=== PATIENT | female | born 1960 | race Caucasian/White ===

== ENCOUNTER 2020-06-27 20:59 | Inpatient (IN) | payer OTHER ==
[2020-06-27] MEDS ORDERED: SODIUM CHLORIDE 1,000 ML IV ONE (21:20)
--- NOTE | 2020-06-27 21:25 | PDOC ---
History of Present Illness - General Chief Complaint: Rectal Bleed Stated Complaint: rectal bleed Time Seen by Provider: 06/27/20 21:07 History Source: Patient Exam Limitations: No Limitations - History of Present Illness Initial Comments: 06/27/20 21:22 This is a 60-year-old female with an autoimmune disorder on Plaquenil as well as some bipolar disease on lithium. Patient comes in complaining of bright red blood per rectum x4 days. Patient said that blood comes out every time she sits down on the toilet. Patient said she has hemorrhoids but this is painless. Patient said also over the last several hours she is felt short of breath but no chest pain or any other complaints. Patient denies any nausea vomiting or black tarry stools. Patient denies any recent NSAID use. Allergies: as per nursing notes Past Medical History: none Social history: Lives with family. No smoking. No alcohol. No illicit drugs. Surgical history: None General: No fevers or chills, no weakness, no weight loss HEENT: No change in vision. No sore throat,. No ear pain CardioVascular: no chest discomfort. No shortness of breath Respiratory:No cough, or wheezing. Gastrointestinal: no nausea, vomiting, diarrhea or constipation, No rectal bleeding Genitourinary: No dysuria, hematuria, or frequency Musculoskeletal: No joint or muscle pain or swelling Neurologic: No headache, vertigo, dizziness or loss of consciousness Psychiatric: nor depression Skin: No rashes or easy bruising Endocrine: no increased thirst or abnormal weight change Allergic: no skin or latex allergy All other systems reviewed and normal Exam: General: Well-nourished well-developed individual, no acute distress HEENT: Throat: Normal, tonsils normal, no erythema or exudate Neck: Supple, no meningeal signs, no lymphadenopathy Eyes::Pupils equal reactive and round, extraocular motion intact Chest: Nontender to palpation Cardiac: S1-S2 normal, regular rate and rhythm, no murmurs rubs or gallops Respiratory: Lungs clear to auscultation bilateral Abdomen: Soft, nondistended, normal bowel sounds, there is no tenderness on palpation diffusely Extremities: Warm, dry, no cyanosis, clubbing, or edema Skin: No rashes Neuro: Alert and oriented x3, CN II - XII intact, nonfocal exam with normal strength, normal sensation, normal reflexes, normal gait, Psych: Normal mood and affect Assessment and plan: This is a 60-year-old female who comes in with bright red blood per rectum. Patient did have approximately 20 cc bright red blood in the hat we put in the toilet bowl when she went to the bathroom. Patient had no stool or urine in the hat. Patient is also tachycardic at 130 but her blood pressure is okay. Patient given normal saline and type and screen was sent. Patient will need to be admitted 06/27/20 21:57 Past History - Medical History Allergies/Adverse Reactions: Allergies Allergy/AdvReac Type Severity Reaction Status Date / Time No Known Allergies Allergy Verified 06/27/20 21:01 Home Medications: Ambulatory Orders Hydroxychloroquine So4 [Plaquenil -] 200 mg PO BID tablet 09/01/15 Trazodone HCl 100 mg PO 2 TABS HS tablet 09/01/15 [place] Carbonate [Eskalith -] 200 mg PO BID 06/27/20 Methylphenidate HCl [Ritalin LA] 10 mg PO DAILY 06/27/20 COPD: No Hypercholesterolemia: Yes Other medical history: depression/auto immune - Psycho-Social/Smoking History Smoking History: Never smoked Have you smoked in the past 12 months: No Information on smoking cessation initiated: No - Substance Abuse Hx (Audit-C & DAST Scrn) How often the patient has a drink containing alcohol: 2-3 times / week Number of drinks the patient has on a typical day: 1 or 2 How often the patient has six or more drinks on one occasion: Never Score: In Men: 4 or > Positive; In Women: 3 or > Positive: 3 Screen Result (Pos requires Nsg. Audit-10AR): Positive In the last yr the pt used illegal drug/Rx for NonMed reason: No Score: Yes response is considered Positive: 0 Screen Result (Positive result requires Nsg. DAST-10): Negative *Physical Exam - Vital Signs Last Vital Signs Temp Pulse Resp BP Pulse Ox 97.9 F 130 H 20 159/84 100 06/27/20 21:11 06/27/20 21:11 06/27/20 21:11 06/27/20 21:11 06/27/20 21:11 ED Treatment Course - LABORATORY CBC & Chemistry Diagram: 06/27/20 21:25 06/27/20 21:25 Discharge - Discharge Information Problems reviewed: Yes Clinical Impression/Diagnosis: Bright red blood per rectum Condition: Stable - Admission Yes - Follow up/Referral Referrals: Chino Bynum MD [Primary Care Provider] - - Patient Discharge Instructions - Post Discharge Activity
[2020-06-27 21:49] LABS: BASO % 0.9 % (0-2.0); EOS % 1.3 % (0-4.5); HEMATOCRIT 42.1 % (32.4-45.2); LYMPH % 25.9 % (8-40); MCH 30.8 pg (25.7-33.7); MCHC 33.3 g/dl (32.0-36.0); MEAN CELL VOLUME 92.5 fl (80-96); MEAN PLT VOLUME 9.3 fl (7.5-11.1); MONO % 6.1 % (3.8-10.2); NEUT % 65.8 % (42.8-82.8); PLATELET COUNT 396 K/MM3 (134-434); RBC 4.55 M/mm3 (3.60-5.2); RDW 13.1 % (11.6-15.6); WHITE BLOOD COUNT 15.2 K/mm3 (4.0-10.8)
[2020-06-27 21:54] LABS: ALBUMIN 4.6 g/dl (3.4-5.0); BILIRUBIN,TOTAL 1.1 mg/dl (0.2-1); CALCIUM 9.7 mg/dl (8.5-10); POTASSIUM 3.6 mmol/L (3.5-5.1)
[2020-06-27 23:31] VITALS: BMI 23.3
--- NOTE | 2020-06-28 08:04 | HP ---
CHIEF COMPLAINT: "I am bleeding from my rectum" PCP: Dr. Bynum HISTORY OF PRESENT ILLNESS: This is a 60 y.o. female with a history of Bipolar on [place], autoimmune disorder on plaquenil, depression, and hemorrhoids who presented to the ED c/o BRBPR x4 days. Pt states she sat on the toilet and filled half a terry jar with bright red blood. Pt states she had some SOB, tremors, and weakness associated with the bleeding, but these have now resolved. Pt denies ever having a colonoscopy in the past or seeing a liquor stores and agencies supervisor. Pt reports last BM was 2 days ago, states she normally experiences some constipation. Pt denies family history of colon cancer and GI disorders. In the ED, pt bled while sitting on the toilet about 20mLs and this morning pt bled once again about 50mLs bright red blood with clots. Pt denies lightheadedness, dizziness, weakness, palpitations, abdominal pain, diarrhea, nausea, vomiting. ER course was notable for: (1) Normal Saline 1L Bolus (2) Type and Screen (3) Chest Xray - negative for acute pathology Recent Travel: Denies PAST MEDICAL HISTORY: Bipolar, Autoimmune Disorder, Hemorrhoids, Depression PAST SURGICAL HISTORY: Gynecological Laparoscopy/Laporotomy, Back Surgery 1999, Ovarian Removal 2014 Social History: Currently unemployed, lives at home with . Has three adopted children who don't live with her anymore. Smoking: Reports occasional marijuana smoking about every 2 months Alcohol: 1 bottle of wine occasionally on weekends Drugs: Denies Allergies No Known Allergies Allergy (Verified 06/27/20 21:01) HOME MEDICATIONS: Home Medications Medication Instructions Recorded Hydroxychloroquine So4 [Plaquenil 200 mg PO BID tablet 09/01/15 -] Trazodone HCl 100 mg PO 2 TABS HS tablet 09/01/15 [place] Carbonate [Eskalith -] 200 mg PO BID 06/27/20 Methylphenidate HCl [Ritalin LA] 10 mg PO DAILY 06/27/20 REVIEW OF SYSTEMS CONSTITUTIONAL: Absent: fever, chills, diaphoresis, generalized weakness, malaise, loss of appetite, weight change HEENT: Absent: rhinorrhea, nasal congestion, throat pain, throat swelling, difficulty swallowing, mouth swelling, ear pain, eye pain, visual changes CARDIOVASCULAR: Absent: chest pain, syncope, palpitations, irregular heart rate, lightheadedness, peripheral edema RESPIRATORY: Absent: cough, shortness of breath, dyspnea with exertion, orthopnea, wheezing, stridor, hemoptysis GASTROINTESTINAL: Present: hematochezia, hemorrhoids Absent: abdominal pain, abdominal distension, nausea, vomiting, diarrhea, constipation, melena GENITOURINARY: Absent: dysuria, frequency, urgency, hesitancy, hematuria, flank pain, genital pain MUSCULOSKELETAL: Absent: myalgia, arthralgia, joint swelling, back pain, neck pain SKIN: Absent: rash, itching, pallor HEMATOLOGIC/IMMUNOLOGIC: Absent: easy bleeding, easy bruising, lymphadenopathy, frequent infections ENDOCRINE:Absent: unexplained weight gain, unexplained weight loss, heat intolerance, cold intolerance NEUROLOGIC: Absent: headache, focal weakness or paresthesias, dizziness, unsteady gait, seizure, mental status changes, bladder or bowel incontinence PSYCHIATRIC: Present: Depression Absent: anxiety, suicidal or homicidal ideation, hallucinations. PHYSICAL EXAMINATION Vital Signs - 24 hr 06/27/20 06/27/20 06/27/20 21:11 22:22 23:00 Temperature 97.9 F 99.1 F Pulse Rate 130 H 94 H Pulse Rate [ 93 H Left] Respiratory 20 18 20 Rate Blood Pressure 159/84 138/78 Blood Pressure 130/100 [Left] O2 Sat by Pulse 100 100 98 Oximetry (%) 06/28/20 06/28/20 02:01 06:00 Temperature 98.5 F 98.4 F Pulse Rate 59 L 59 L Pulse Rate [ Left] Respiratory 20 18 Rate Blood Pressure 127/70 114/64 Blood Pressure [Left] O2 Sat by Pulse 100 100 Oximetry (%) GENERAL: Awake, alert, and fully oriented, in no acute distress. HEAD: Normal with no signs of trauma. EYES: Pupils equal, round and reactive to light, extraocular movements intact, sclera anicteric, conjunctiva clear. No lid lag. EARS, NOSE, THROAT: Ears normal, nares patent, oropharynx clear without exudates. Moist mucous membranes. NECK: Normal range of motion, supple without lymphadenopathy, JVD, or masses. LUNGS: Breath sounds equal, clear to auscultation bilaterally. No wheezes, and no crackles. No accessory muscle use. HEART: Regular rate and rhythm, normal S1 and S2 without murmur, rub or gallop. ABDOMEN: Soft, RLQ tenderness on deep palpation, not distended, normoactive bowel sounds, no guarding, no rebound, no masses. No hepatomegaly or splenomegaly. Last BM 06/25/2020. Rectal: External hemorrhoids present MUSCULOSKELETAL: Normal range of motion at all joints. No bony deformities or tenderness. No CVA tenderness. UPPER EXTREMITIES: 2+ pulses, warm, well-perfused. No cyanosis. No clubbing. No peripheral edema. LOWER EXTREMITIES: 2+ pulses, warm, well-perfused. No calf tenderness. No peripheral edema. NEUROLOGICAL: Cranial nerves II-XII intact. Normal speech. Normal gait. PSYCHIATRIC: Cooperative. Good eye contact. Appropriate mood and affect. SKIN: Warm, dry, normal turgor, no rashes or lesions noted, normal capillary refill. Laboratory Results - last 24 hr 06/27/20 06/27/20 06/27/20 21:25 21:25 21:25 WBC 15.2 H RBC 4.55 Hgb 14.0 Hct 42.1 MCV 92.5 MCH 30.8 MCHC 33.3 RDW 13.1 Plt Count 396 MPV 9.3 Absolute Neuts (auto) 10.1 Neutrophils % 65.8 Lymphocytes % 25.9 Monocytes % 6.1 Eosinophils % 1.3 Basophils % 0.9 Sodium 135 L Potassium 3.6 Chloride 102 Carbon Dioxide 18 L Anion Gap 15 BUN 17.0 Creatinine 1.0 Est GFR (CKD-EPI)AfAm 70.91 Est GFR (CKD-EPI)NonAf 61.19 Random Glucose 142 H Calcium 9.7 Total Bilirubin 1.1 H AST 25 ALT 16 Alkaline Phosphatase 74 Creatine Kinase 95 Troponin I < 0.03 Total Protein 7.0 Albumin 4.6 Blood Type Antibody Screen 06/27/20 06/27/20 21:25 21:45 WBC RBC Hgb Hct MCV MCH MCHC RDW Plt Count MPV Absolute Neuts (auto) Neutrophils % Lymphocytes % Monocytes % Eosinophils % Basophils % Sodium Potassium Chloride Carbon Dioxide Anion Gap BUN Creatinine Est GFR (CKD-EPI)AfAm Est GFR (CKD-EPI)NonAf Random Glucose Calcium Total Bilirubin AST ALT Alkaline Phosphatase Creatine Kinase Troponin I Total Protein Albumin Blood Type O POSITIVE O POSITIVE Antibody Screen Negative ASSESSMENT/PLAN: This is a 59 y.o. female with a history of Bipolar, autoimmune disorder, hemorrhoids, and depression who came in to the ED for BRBPR x4 days not associated with bowel movements. Pt has active lower GI bleed with right lower quadrant tenderness and leukocytosis. VTE Prophylaxis: No AC as pt is actively bleeding Spoke with patient's at length who is an Rope Tow Operator (Otoniel). He was updated on patient's status and the plan. Pt's states he wants patient to be transferred to a bigger facility, states he has connection with doctors at [facility] and has an appointment set up for patient with a colorectal doctor tomorrow. Discussed with that patient is actively bleeding and work up is still in progress, therefore if patient wants to leave and go to another facility, she would have to sign out AMA. Pt's agreed to have patient transferred to [facility] for closer monitoring. Otoniel () - [phone] Family Medical History Family History: Unremarkable Problem List - Problem (1) Bright red blood per rectum Assessment/Plan: Pt had 2 episodes bright red blood per rectum with clots since admission Hgb stable, repeat hgb dropped by 2gm/dL but still WNL Repeat CBC at 2pm today and then q 6 CT Abdomen/Pelvis showed diverticula in the left colon without diverticulitis. otherwise, no other acute pathology. start on Protonix Drip 2 units PRBCs on hold with blood bank LR @ 100mL/hr Keep NPO for now, can have PO meds Continous Cardiac Monitoring Spoke with Dr. Astudillo - agrees with plan and possible colonoscopy in the morning pending CT scan results Code(s): K62.5 - HEMORRHAGE OF ANUS AND RECTUM (2) Leukocytosis Assessment/Plan: Pt afebrile Collect UA and Urine culture Check blood cultures and stool cultures Code(s): D72.829 - ELEVATED WHITE BLOOD CELL COUNT, UNSPECIFIED (3) Bipolar disorder Assessment/Plan: Check lithium levels Restart home dose lithium Code(s): F31.9 - BIPOLAR DISORDER, UNSPECIFIED (4) Depression Assessment/Plan: Continue trazadone Code(s): F32.9 - MAJOR DEPRESSIVE DISORDER, SINGLE EPISODE, UNSPECIFIED (5) Autoimmune disorder Assessment/Plan: Continue plaquenil Code(s): D89.89 - OTH DISRD INVOLVING THE IMMUNE MECHANISM, NEC (6) Prophylactic measure Assessment/Plan: FEN LR @ 100 monitor electrolytes, cmp along with cbc q 4 NPO except for limited PO meds code status: full code covid status: pending Code(s): Z29.9 - ENCOUNTER FOR PROPHYLACTIC MEASURES, UNSPECIFIED Visit type - Emergency Visit Emergency Visit: Yes ED Registration Date: 06/27/20 Care time: The patient presented to the Emergency Department on the above date and was hospitalized for further evaluation of their emergent condition. - New Patient This patient is new to me today: Yes Date on this admission: 06/28/20 - Critical Care Critical Care patient: No
[2020-06-28] MEDS ORDERED: traZODone HCL 150 MG TABLET PO SCH (08:45)
[2020-06-28] MEDS ORDERED: SODIUM CHLORIDE 1,000 ML IV SCH (08:45)
[2020-06-28 09:11] LABS: INR 1.1 (0.82-1.09); PROTHROMBIN TIME (PATIENT) 12.3 SEC (10.2-13.0)
[2020-06-28 09:18] LABS: CALCIUM 9.3 mg/dl (8.5-10); CREATININE 0.9 mg/dl (0.55-1.3); POTASSIUM 4.2 mmol/L (3.5-5.1)
[2020-06-28] MEDS ORDERED: LACTATED RINGERS SOLUTION 1,000 ML/1,000 ML INFUS.BAG IV SCH (09:30)
[2020-06-28 09:41] LABS: HEMATOCRIT 37.7 % (32.4-45.2); HEMOGLOBIN 12.7 GM/dl (10.7-15.3); MCH 31.3 pg (25.7-33.7); MCHC 33.7 g/dl (32.0-36.0); MEAN CELL VOLUME 92.7 fl (80-96); MEAN PLT VOLUME 9.3 fl (7.5-11.1); PLATELET COUNT 355 K/MM3 (134-434); RBC 4.07 M/mm3 (3.60-5.2); RDW 12.4 % (11.6-15.6); WHITE BLOOD COUNT 14.2 K/mm3 (4.0-10.8)
[2020-06-28] MEDS ORDERED: PANTOPRAZOLE 40 MG TABLET PO SCH (10:00)
[2020-06-28] MEDS ORDERED: METHYLPHENIDATE HCL 10 MG PO SCH (10:00)
[2020-06-28] MEDS: PANTOPRAZOLE SODIUM 80 MG in SODIUM CHLORIDE 100 ML IVPB SCH ×2 (10:07→22:49)
[2020-06-28] MEDS: HYDROXYCHLOROQUINE SO4 200 MG TABLET (FP) PO SCH ×2 (10:50→22:49)
[2020-06-28] MEDS ORDERED: LITHIUM CARBONATE 300 MG CAPSULE (FP) PO SCH ×2 (11:00→22:00)
[2020-06-28] MEDS ORDERED: METHYLPHENIDATE HCL 5 MG TABLET PO SCH (12:00)
--- NOTE | 2020-06-28 12:45 | EKG ---
Test Reason : Blood Pressure : / mmHG Vent. Rate : 121 BPM Atrial Rate : 121 BPM P-R Int : 168 ms QRS Dur : 088 ms QT Int : 316 ms P-R-T Axes : 072 -62 073 degrees QTc Int : 448 ms SINUS TACHYCARDIA LEFT ANTERIOR FASCICULAR BLOCK INFERIOR INFARCT , AGE UNDETERMINED ABNORMAL ECG NO PREVIOUS ECGS AVAILABLE Confirmed by Chacorta Cano ([id number]) on 06/28/2020 12:45:21 PM Referred By: Confirmed By:Chacorta Cano
[2020-06-28 14:15] LABS: HEMATOCRIT 32.9 % (32.4-45.2); HEMOGLOBIN 11.2 GM/dl (10.7-15.3); MCH 31.3 pg (25.7-33.7); MCHC 33.9 g/dl (32.0-36.0); MEAN CELL VOLUME 92.2 fl (80-96); MEAN PLT VOLUME 8.6 fl (7.5-11.1); PLATELET COUNT 281 K/MM3 (134-434); RBC 3.57 M/mm3 (3.60-5.2); RDW 12.6 % (11.6-15.6); WHITE BLOOD COUNT 10.7 K/mm3 (4.0-10.8)
[2020-06-28 14:42] LABS: BASO % 0.9 % (0-2.0); EOS % 1.5 % (0-4.5); HEMATOCRIT 32.7 % (32.4-45.2); HEMOGLOBIN 11.2 GM/dl (10.7-15.3); LYMPH % 26.8 % (8-40); MCH 31.4 pg (25.7-33.7); MCHC 34.1 g/dl (32.0-36.0); MEAN CELL VOLUME 92.1 fl (80-96); MONO % 5.7 % (3.8-10.2); NEUT % 65.1 % (42.8-82.8); PLATELET COUNT 288 K/MM3 (134-434); RBC 3.55 M/mm3 (3.60-5.2); RDW 12.9 % (11.6-15.6); WHITE BLOOD COUNT 10.4 K/mm3 (4.0-10.8)
[2020-06-28] MEDS ORDERED: ACETAMINOPHEN 325 MG TABLET (FP) PO PRN (16:38)
[2020-06-28 18:05] LABS: BASO % 0.8 % (0-2.0); EOS % 1.7 % (0-4.5); HEMATOCRIT 31.8 % (32.4-45.2); HEMOGLOBIN 10.8 GM/dl (10.7-15.3); LYMPH % 26.9 % (8-40); MCH 31.4 pg (25.7-33.7); MCHC 34.1 g/dl (32.0-36.0); MEAN PLT VOLUME 8.6 fl (7.5-11.1); MONO % 6.2 % (3.8-10.2); NEUT % 64.4 % (42.8-82.8); PLATELET COUNT 287 K/MM3 (134-434); RBC 3.45 M/mm3 (3.60-5.2); RDW 12.7 % (11.6-15.6); WHITE BLOOD COUNT 9.9 K/mm3 (4.0-10.8)
[2020-06-28] MEDS ORDERED: REFRIGERATED ANITBIOTICS ONE ×2 (18:07→19:27)
[2020-06-28 18:14] LABS: ALBUMIN 3.6 g/dl (3.4-5.0); BILIRUBIN,TOTAL 1.1 mg/dl (0.2-1); CALCIUM 8.7 mg/dl (8.5-10); CREATININE 0.7 mg/dl (0.55-1.3); POTASSIUM 3.7 mmol/L (3.5-5.1); TOT PROT 5.3 g/dl (6.4-8.2)
[2020-06-28] MEDS ORDERED: traZODone HCL 50 MG TABLET (FP) ONE (20:58)
[2020-06-28] MEDS ORDERED: traZODone HCL 100 MG TABLET (FP) PO SCH (22:00)
[2020-06-28] MEDS ORDERED: ATORVASTATIN CA 10 MG TABLET (FP) PO SCH (22:00)
[2020-06-28] MEDS: LACTATED RINGERS SOLUTION 1,000 ML/1,000 ML INFUS.BAG IV SCH (23:50)
--- NOTE | 2020-06-29 00:55 | PN ---
Progress Note (short form) - Note Progress Note: Patient seen and examined at bedside. Patient was brought in by ambulance from [facility]. Patient reports that she still has bright red blood per rectum bleeding, but that it is improved. She reports having in the past hemorrhoidal bleeding, but that this is much more different. She states that if she sits down, even to urinate, bright red blood can come out of her rectum. She denies fever/chills, heart palpitations, chest pain, abdominal pain, and shortness of breath. Physical Exam: Heart: RRR with no murmurs Pulm: CTA b/l Abdomen: Soft, non-tender, non-distended, normoactive. Patient is NPO for colonoscopy.
--- NOTE | 2020-06-29 00:57 | PN ---
Teaching Attending Note Name of Resident: Dom Youssef ATTENDING PHYSICIAN STATEMENT I saw and evaluated the patient. I reviewed the resident's note and discussed the case with the resident. I agree with the resident's findings and plan as documented. SUBJECTIVE: 60yoF presenting as transfer from [facility] for evaluation of hematochezia. Notes bl eeding has improved since presenting to [facility], previously had bleeding per rectum any time she went to the bathroom but this evening there has been no blood the past two times. Has not required blood transfusion. Last BM yesterday morning. No nausea, vomiting, lightheadedness, chest pain, abdominal pain. CT abd/pelvis showed scattered diverticula left colon without diverticulitis. OBJECTIVE: Vital Signs - 24 hr 06/28/20 06/28/20 21:00 22:00 Temperature 98.2 F Pulse Rate 77 Respiratory 18 18 Rate Blood Pressure 143/68 O2 Sat by Pulse 98 98 Oximetry (%) EXAM Gen: awake, alert, NAD CV: RRR, no MRG Resp: CTAB, unlabored Abd: Soft, NT, ND. +BS throughout Ext: no edema ASSESSMENT AND PLAN: 60yoF presenting as transfer from [facility] for evaluation of hematochezia. Hematochezia; acute blood loss anemia No active bleeding currently. VSS and asymptomatic Hgb 14.0 -> 10.8 most recently; suspect some dilutional effect as all cell lines decreased - NPO - continue IVF - GI evaluation pending - rpt CBC in AM Bipolar disorder, autoimmune disorder: continue home meds DVT ppx: SCD
[2020-06-29] MEDS: PANTOPRAZOLE SODIUM 80 MG in SODIUM CHLORIDE 100 ML IVPB SCH ×2 (06:00→18:14)
[2020-06-29 08:48] LABS: CHOLESTEROL 131 mg/dL (50-200); LDL CHOLESTEROL (ONLY SJRH) 62 mg/dL (5-100); TRIGLYCERIDES 99 mg/dL (0-150)
[2020-06-29 08:50] LABS: HDL CHOLESTEROL 59 mg/dL (40-60)
[2020-06-29 08:51] LABS: BILIRUBIN,TOTAL 0.8 mg/dL (0.2-1); BLOOD UREA NITROGEN 6.7 mg/dL (7-18); CALCIUM 8.4 mg/dL (8.5-10.1); CREATININE 0.7 mg/dL (0.55-1.3); POTASSIUM 3.7 mmol/L (3.5-5.1)
[2020-06-29 09:43] LABS: BASO % 0.9 % (0-2.0); EOS % 3.5 % (0-4.5); HEMATOCRIT 29.1 % (32.4-45.2); HEMOGLOBIN 9.6 GM/dL (10.7-15.3); LYMPH % 37.8 % (8-40); MCH 30.2 pg (25.7-33.7); MCHC 33.1 g/dl (32.0-36.0); MEAN CELL VOLUME 91.3 fl (80-96); MEAN PLT VOLUME 9.3 fl (7.5-11.1); MONO % 7.8 % (3.8-10.2); PLATELET COUNT 210 K/MM3 (134-434); RBC 3.18 M/mm3 (3.60-5.2); RDW 13.7 % (11.6-15.6); WHITE BLOOD COUNT 7.4 K/mm3 (4.0-10.0)
[2020-06-29] MEDS: HYDROXYCHLOROQUINE SO4 200 MG TABLET (FP) PO SCH ×2 (10:25→22:22)
--- NOTE | 2020-06-29 13:20 | PN ---
Physical Exam: SUBJECTIVE: Patient seen and examined today with at bedside, situation explained. Ptn denies any more bloody bowel movements. Denies any CP, SoB, Blurry vision or syncopal episodes. Endorses mild dizziness. OBJECTIVE: Vital Signs Period Temp Pulse Resp BP Sys/Hernandez Pulse Ox Last 24 Hr 98.1 F-98.9 F 71-89 16-20 97-143/42-73 98-100 GENERAL: The patient is awake, alert, and fully oriented, in no acute distress. HEAD: Normal with no signs of trauma. EYES: PERRL, extraocular movements intact, sclera anicteric, conjunctiva clear. No ptosis. ENT: Ears normal, nares patent, oropharynx clear without exudates, moist mucous membranes. NECK: Trachea midline, full range of motion, supple. LUNGS: Breath sounds equal, clear to auscultation bilaterally, no wheezes, no crackles, no accessory muscle use. HEART: Regular rate and rhythm, S1, S2 without murmur, rub or gallop. ABDOMEN: Soft, nontender, nondistended, normoactive bowel sounds EXTREMITIES: 2+ pulses, warm, well-perfused, no edema. NEUROLOGICAL: Normal speech, gait not observed. PSYCH: Normal mood, normal affect. SKIN: Warm, dry, normal turgor, no rashes or lesions noted Laboratory Results - last 24 hr CBC, BMP 06/29/20 13:37 06/29/20 13:37 Active Medications Generic Name Dose Route Start Last Admin Trade Name Freq PRN Reason Stop Dose Admin Acetaminophen 650 mg 06/28/20 16:38 Tylenol - PO Q6H PRN PAIN LEVEL 7 - 10 Atorvastatin Calcium 10 mg 06/29/20 22:00 Lipitor - PO HS MEAGHAN Hydroxychloroquine Sulfate 200 mg 06/29/20 10:00 06/29/20 10:25 Plaquenil - PO 200 mg BID MEAGHAN Administration Lactated Ringer's 1,000 ml in 1,000 mls @ 100 mls/hr 06/28/20 23:23 06/28/20 23:50 Lactated Ringers Solution IV 100 mls/hr ASDIR MEAGHAN Administration Pantoprazole Sodium 80 mg/ 100 mls @ 10 mls/hr 06/29/20 06:00 06/29/20 06:00 Sodium Chloride IVPB 07/01/20 09:59 10 mls/hr Q10H MEAGHAN Administration 8 MG/HR [place] Carbonate 300 mg 06/29/20 22:00 Eskalith - PO HS MEAGHAN Trazodone HCl 100 mg 06/29/20 22:00 Desyrel - PO HS MEAGHAN ASSESSMENT/PLAN: This is a 59 y.o. female with a history of Bipolar, autoimmune disorder, he morrhoids, and depression who came in to the ED for BRBPR x4 days not associated with bowel movements. Pt has active lower GI bleed with right lower quadrant tenderness and leukocytosis. GI Bleeding likely 2/2 Diverticulosis -Active GI Bleeding, now resolved -Anemia -FU Afternoon CBC -CT Abdomen/Pelvis: Diverticula in the left colon without diverticulitis -Protonix 80mg IV -LR @ 100mL/hr -Per GI: Ptn agreed to Colonoscopy --> NPO after midnight Anemia -Per GI: Transfuse above 7.0 -If profuse bleeding, transfer to ICU Leukocytosis -VSS, no fever -UA Negative -FU UCx -FU Blood Cx Hypoglycemia: -Currently CLD -Monitor Blood Glucose Bipolar Disorder -Continue Home [place] -Monitor [place] Levels in 3 days MDD -Continue Trazadone Lichen Planus Follicularis -Hair Loss -Continue Plaquenil FEN LR @ 100 Monitory Lytes CLD per GI, NPO after midnight Dispo: Continue management on med floors Visit type - Emergency Visit Emergency Visit: No - New Patient This patient is new to me today: Yes Date on this admission: 06/29/20 - Critical Care Critical Care patient: No - Discharge Referral Referred to [facility] Med P.C.: No ATTENDING PHYSICIAN STATEMENT I saw and evaluated the patient. I reviewed the resident's note and discussed the case with the resident. I agree with the resident's findings and plan as documented. SUBJECTIVE: OBJECTIVE: ASSESSMENT AND PLAN:
--- NOTE | 2020-06-29 14:01 | CON.GI ---
Consult Consult Specialty:: GI Referred by:: Hospitalist Service Reason for Consultation:: Rectal Bleeding - History of Present Illness Chief Complaint: Rectal bleeding History of Present Illness: 60F admitted for evaluation of rectal bleeding. Bleeding started last . Multiple episodes throughout the days. Waited until Sunday to seek evaluation. At that time was lightheaded and dizzy. Was seen at [facility] but transferred to [facility]. Initial Hgb was 14. Currently 9.6. A contrast CT scan performed in the ER (Unclear why) revealed left sided diverticulosis and a fat containing right inguinal hernia. No h/o anemia. Has small blood tinged BM today. Has never had colonoscopy. Alludes to having had negative stool cologuard testing performed 3-4 months ago. No associated abdominal pain. No family history of colon cancer. - History Source History Provided By: Patient - Past Medical History Psych: Yes: Depression - Past Surgical History Additional Surgical History: Laparoscopy - Alcohol/Substance Use Hx Alcohol Use: No - Smoking History Smoking history: Never smoked Have you smoked in the past 12 months: No - Social History Usual Living Arrangement: Assisted Living History of Recent Travel: No Home Medications - Allergies Allergies/Adverse Reactions: Allergies Allergy/AdvReac Type Severity Reaction Status Date / Time No Known Allergies Allergy Verified 06/27/20 21:01 - Home Medications Home Medications: Ambulatory Orders Hydroxychloroquine So4 [Plaquenil -] 200 mg PO BID tablet 09/01/15 Trazodone HCl 100 mg PO 2 TABS HS tablet 09/01/15 [place] Carbonate [Eskalith -] 600 mg PO HS 06/27/20 Methylphenidate HCl [Ritalin LA] 20 mg PO TID 06/27/20 Family Medical History Other Family History: Mother: Alive: healthy. Father: : Atypical lung infection. 1 brother, 1 sister. No biological children Review of Systems - Review of Systems Constitutional: reports: Weakness. denies: Chills Cardiovascular: denies: Chest Pain Respiratory: denies: Cough Gastrointestinal: reports: Rectal Bleeding. denies: Abdominal Pain, Nausea, Vomiting Physical Exam-GI Vital Signs: Vital Signs Temperature 98.1 F 06/29/20 09:19 Pulse Rate 72 06/29/20 09:24 Respiratory Rate 20 06/29/20 09:19 Blood Pressure 98/47 L 06/29/20 09:24 O2 Sat by Pulse Oximetry (%) 100 06/29/20 09:19 Constitutional: Yes: Calm Eyes: No: Sclera Icterus Cardiovascular: Yes: Regular Rate and Rhythm. No: Murmur Respiratory: Yes: CTA Bilaterally Gastrointestinal Inspection: No: Distention ...Auscultate: Yes: Normoactive Bowel Sounds ...Palpate: Yes: Soft. No: Hepatomegaly, Splenomegaly, Tenderness ...Percussion: No: Tympanitic ...Rectal Exam: Yes: Other (Screener And Blender Operator present: No external lesions, no masses, scant liquid brown stool in rectal vault) Edema: No Neurological: Yes: Alert Labs: CBC, BMP 06/29/20 05:35 06/29/20 05:35 INR, PTT INR 1.10 (0.82-1.09) 06/28/20 06:00 Problem List - Problems (1) Bright red blood per rectum Assessment/Plan: Suspect diverticular bleed Discussed colonoscopy with patient for further evaluation. DIscussed potential risks of the procedure like but not limited to blleeding, perforation requiring surgery to repair, infection, sedation medication effects all of which could be potentially life threatening. She has agreed to the procedure. For now: Clear liquids Continued monitor setting Ordered repeat CBC for this afternoon. Monitor H/H. Keep Hgb >7 If continued profuse rectal bleeding, transfer to ICU, obtain CTA of abdomen and pelvis to help localize bleeding sourcew and obtain surgical evaluation. Code(s): K62.5 - HEMORRHAGE OF ANUS AND RECTUM
[2020-06-29 14:15] LABS: HEMATOCRIT 30.5 % (32.4-45.2); HEMOGLOBIN 9.9 GM/dL (10.7-15.3); MCHC 32.4 g/dl (32.0-36.0); MEAN CELL VOLUME 92.5 fl (80-96); MEAN PLT VOLUME 9.1 fl (7.5-11.1); PLATELET COUNT 211 K/MM3 (134-434); WHITE BLOOD COUNT 11.8 K/mm3 (4.0-10.0)
[2020-06-29 14:45] LABS: ALBUMIN 3.2 g/dl (3.4-5.0); BILIRUBIN,TOTAL 0.7 mg/dL (0.2-1); BLOOD UREA NITROGEN 9.1 mg/dL (7-18); CALCIUM 8.7 mg/dL (8.5-10.1); CREATININE 0.8 mg/dL (0.55-1.3); POTASSIUM 4.2 mmol/L (3.5-5.1); TOT PROT 5.2 g/dl (6.4-8.2)
[2020-06-29] MEDS ORDERED: BISACODYL 5 MG TABLET.DR (FP) PO ONE (16:00)
[2020-06-29] MEDS ORDERED: PEG 3350/NA SULF BICARB CL/KCL 4000 ML SOLN.RECON PO ONE (17:00)
--- NOTE | 2020-06-29 18:36 | PN ---
Teaching Attending Note Name of Resident: Ronn Leblanc ATTENDING PHYSICIAN STATEMENT I saw and evaluated the patient. I reviewed the resident's note and discussed the case with the resident. I agree with the resident's findings and plan as documented. SUBJECTIVE: Patient looks comfortable with NAD OBJECTIVE: Vital Signs Temperature 98.2 F 06/29/20 14:05 Pulse Rate 72 06/29/20 14:05 Respiratory Rate 20 06/29/20 14:05 Blood Pressure 105/59 L 06/29/20 14:05 O2 Sat by Pulse Oximetry (%) 100 06/29/20 09:19 PE; per resident's note CBCD WBC 11.8 K/mm3 (4.0-10.0) H 06/29/20 13:37 RBC 3.30 M/mm3 (3.60-5.2) L 06/29/20 13:37 Hgb 9.9 GM/dL (10.7-15.3) L 06/29/20 13:37 Hct 30.5 % (32.4-45.2) L 06/29/20 13:37 MCV 92.5 fl (80-96) 06/29/20 13:37 MCHC 32.4 g/dl (32.0-36.0) 06/29/20 13:37 RDW 14.0 % (11.6-15.6) 06/29/20 13:37 Plt Count 211 K/MM3 (134-434) 06/29/20 13:37 MPV 9.1 fl (7.5-11.1) 06/29/20 13:37 CMP Sodium 142 mmol/L (136-145) 06/29/20 13:37 Potassium 4.2 mmol/L (3.5-5.1) 06/29/20 13:37 Chloride 111 mmol/L (98-107) H 06/29/20 13:37 Carbon Dioxide 24 mmol/L (21-32) 06/29/20 13:37 Anion Gap 8 MMOL/L (8-16) 06/29/20 13:37 BUN 9.1 mg/dL (7-18) 06/29/20 13:37 Creatinine 0.8 mg/dL (0.55-1.3) 06/29/20 13:37 Random Glucose 56 mg/dL (74-106) L 06/29/20 13:37 Calcium 8.7 mg/dL (8.5-10.1) 06/29/20 13:37 Total Bilirubin 0.7 mg/dL (0.2-1) 06/29/20 13:37 AST 16 U/L (15-37) 06/29/20 13:37 ALT 14 U/L (13-61) 06/29/20 13:37 Alkaline Phosphatase 58 U/L (45-117) 06/29/20 13:37 Total Protein 5.2 g/dl (6.4-8.2) L 06/29/20 13:37 Albumin 3.2 g/dl (3.4-5.0) L 06/29/20 13:37 CARDIAC ENZYMES Creatine Kinase 95 U/L (26-192) 06/27/20 21:25 Troponin I < 0.03 ng/ml (0.00-0.05) 06/27/20 21:25 Current Medications Generic Name Dose Route Start Last Admin Trade Name Freq PRN Reason Stop Dose Admin Acetaminophen 650 mg 06/28/20 16:38 Tylenol - PO Q6H PRN PAIN LEVEL 7 - 10 Atorvastatin Calcium 10 mg 06/29/20 22:00 Lipitor - PO HS MEAGHAN Hydroxychloroquine Sulfate 200 mg 06/29/20 10:00 06/29/20 10:25 Plaquenil - PO 200 mg BID MEAGHAN Administration Lactated Ringer's 1,000 ml in 1,000 mls @ 100 mls/hr 06/28/20 23:23 06/28/20 23:50 Lactated Ringers Solution IV 100 mls/hr ASDIR MEAGHAN Administration Pantoprazole Sodium 80 mg/ 100 mls @ 10 mls/hr 06/29/20 06:00 06/29/20 18:14 Sodium Chloride IVPB 07/01/20 09:59 10 mls/hr Q10H MEAGHAN Administration 8 MG/HR [place] Carbonate 600 mg 06/29/20 22:00 Eskalith - PO HS MEAGHAN Methylphenidate HCl 20 mg 06/29/20 22:00 Ritalin - PO TID MEAGHAN Trazodone HCl 200 mg 06/29/20 22:00 Desyrel - PO HS MEAGHAN Home Medications Medication Instructions Recorded Hydroxychloroquine So4 [Plaquenil 200 mg PO BID tablet 11/11/15 -] Trazodone HCl 100 mg PO 2 TABS HS tablet 09/01/15 [place] Carbonate [Eskalith -] 600 mg PO HS 06/27/20 Methylphenidate HCl [Ritalin LA] 20 mg PO TID 06/27/20 Microbiology 06/28/20 09:49 Blood - Peripheral Venous Blood Culture - Preliminary NO GROWTH OBTAINED AFTER 24 HOURS, INCUBATION TO CONTINUE FOR 4 DAYS. 06/28/20 09:49 Blood - Peripheral Venous Blood Culture - Preliminary NO GROWTH OBTAINED AFTER 24 HOURS, INCUBATION TO CONTINUE FOR 4 DAYS. 06/28/20 10:30 Urine - Urine Clean Catch Urine Culture - Preliminary ASSESSMENT AND PLAN: This patient is a 59yof with PMhx of Bipolar, autoimmune disorder, hemorrhoids, and depression who came in to the ED for having bright red blood x 4 days with bowel movements painless. # Acute GIB due to Diverticulosis most likely , Colonoscopy in am , GI consulted and appreciated # Anemia: H/H monitor #Acute Leukocytosis monitor , no source of infection, follow cx #Bipolar Disorder continue Home [place] , f/u the level #MDD continue Trazadone will lower the dose since can prolong Qtc # Lichen Planus Follicularis: Hair Loss, continue Plaquenil, will check QTc prior to giving the patient the medication DVT px: SCds, npo after midnight for colonoscopy
[2020-06-29] MEDS ORDERED: PT OWN MED DRAWER 7, Y5N ONE ×2 (21:25→22:24)
[2020-06-29] MEDS ORDERED: traZODone HCL 100 MG TABLET (FP) PO SCH ×2 (22:00)
[2020-06-29] MEDS ORDERED: LITHIUM CARBONATE 300 MG CAPSULE (FP) PO SCH ×2 (22:00)
[2020-06-29] MEDS ORDERED: ATORVASTATIN CA 10 MG TABLET (FP) PO SCH (22:00)
[2020-06-29] MEDS: METHYLPHENIDATE HCL 5 MG TABLET PO SCH (23:45)
[2020-06-29] MEDS: LACTATED RINGERS SOLUTION 1,000 ML/1,000 ML INFUS.BAG IV SCH (23:45)
[2020-06-30] MEDS: PANTOPRAZOLE SODIUM 80 MG in SODIUM CHLORIDE 100 ML IVPB SCH ×3 (04:30→15:25)
[2020-06-30] MEDS: LACTATED RINGERS SOLUTION 1,000 ML/1,000 ML INFUS.BAG IV SCH (05:23)
[2020-06-30] MEDS: METHYLPHENIDATE HCL 5 MG TABLET PO SCH ×2 (05:23→15:24)
[2020-06-30 07:23] LABS: BASO % 0.7 % (0-2.0); EOS % 4.2 % (0-4.5); HEMATOCRIT 24.4 % (32.4-45.2); HEMOGLOBIN 8.2 GM/dL (10.7-15.3); LYMPH % 43.2 % (8-40); MCH 30.4 pg (25.7-33.7); MCHC 33.6 g/dl (32.0-36.0); MEAN CELL VOLUME 90.5 fl (80-96); MEAN PLT VOLUME 9.3 fl (7.5-11.1); MONO % 8.3 % (3.8-10.2); NEUT % 43.6 % (42.8-82.8); PLATELET COUNT 190 K/MM3 (134-434); RBC 2.69 M/mm3 (3.60-5.2); RDW 13.5 % (11.6-15.6); WHITE BLOOD COUNT 5.9 K/mm3 (4.0-10.0)
[2020-06-30 07:41] LABS: ALBUMIN 2.5 g/dl (3.4-5.0); BILIRUBIN,TOTAL 0.5 mg/dL (0.2-1); BLOOD UREA NITROGEN 6.6 mg/dL (7-18); CALCIUM 7.7 mg/dL (8.5-10.1); CREATININE 0.8 mg/dL (0.55-1.3); POTASSIUM 3.6 mmol/L (3.5-5.1); TOT PROT 4.2 g/dl (6.4-8.2)
--- NOTE | 2020-06-30 09:50 | PN ---
Teaching Attending Note Name of Resident: Ronn Leblanc ATTENDING PHYSICIAN STATEMENT I saw and evaluated the patient. I reviewed the resident's note and discussed the case with the resident. I agree with the resident's findings and plan as documented. SUBJECTIVE: Patient is feeling better , going for colonoscopy today OBJECTIVE: Vital Signs Temperature 97.8 F 06/30/20 09:03 Pulse Rate 60 06/30/20 09:03 Respiratory Rate 18 06/30/20 09:03 Blood Pressure 100/50 L 06/30/20 09:03 O2 Sat by Pulse Oximetry (%) 0 L 06/30/20 09:03 PE: per resident's note CBCD WBC 5.9 K/mm3 (4.0-10.0) 06/30/20 05:32 RBC 2.69 M/mm3 (3.60-5.2) L 06/30/20 05:32 Hgb 8.2 GM/dL (10.7-15.3) L 06/30/20 05:32 Hct 24.4 % (32.4-45.2) L D 06/30/20 05:32 MCV 90.5 fl (80-96) 06/30/20 05:32 MCHC 33.6 g/dl (32.0-36.0) 06/30/20 05:32 RDW 13.5 % (11.6-15.6) 06/30/20 05:32 Plt Count 190 K/MM3 (134-434) 06/30/20 05:32 MPV 9.3 fl (7.5-11.1) 06/30/20 05:32 CMP Sodium 143 mmol/L (136-145) 06/30/20 05:32 Potassium 3.6 mmol/L (3.5-5.1) 06/30/20 05:32 Chloride 112 mmol/L (98-107) H 06/30/20 05:32 Carbon Dioxide 28 mmol/L (21-32) 06/30/20 05:32 Anion Gap 4 MMOL/L (8-16) L 06/30/20 05:32 BUN 6.6 mg/dL (7-18) L 06/30/20 05:32 Creatinine 0.8 mg/dL (0.55-1.3) 06/30/20 05:32 Random Glucose 83 mg/dL (74-106) 06/30/20 05:32 Calcium 7.7 mg/dL (8.5-10.1) L 06/30/20 05:32 Total Bilirubin 0.5 mg/dL (0.2-1) 06/30/20 05:32 AST 13 U/L (15-37) L 06/30/20 05:32 ALT 13 U/L (13-61) 06/30/20 05:32 Alkaline Phosphatase 40 U/L (45-117) L 06/30/20 05:32 Total Protein 4.2 g/dl (6.4-8.2) L 06/30/20 05:32 Albumin 2.5 g/dl (3.4-5.0) L 06/30/20 05:32 CARDIAC ENZYMES Creatine Kinase 95 U/L (26-192) 06/27/20 21:25 Troponin I < 0.03 ng/ml (0.00-0.05) 06/27/20 21:25 Current Medications Generic Name Dose Route Start Last Admin Trade Name Joel PRN Reason Stop Dose Admin Acetaminophen 650 mg 06/28/20 16:38 Tylenol - PO Q6H PRN PAIN LEVEL 7 - 10 Atorvastatin Calcium 10 mg 06/29/20 22:00 06/29/20 22:21 Lipitor - PO 10 mg HS MEAGHAN Administration Hydroxychloroquine Sulfate 200 mg 06/29/20 10:00 06/29/20 22:22 Plaquenil - PO 200 mg BID MEAGHAN Administration Lactated Ringer's 1,000 ml in 1,000 mls @ 100 mls/hr 06/28/20 23:23 06/30/20 05:23 Lactated Ringers Solution IV 100 mls/hr ASDIR MEAGHAN Administration Pantoprazole Sodium 80 mg/ 100 mls @ 10 mls/hr 06/29/20 06:00 06/30/20 04:30 Sodium Chloride IVPB 07/01/20 09:59 10 mls/hr Q10H MEAGHAN Administration 8 MG/HR [place] Carbonate 600 mg 06/29/20 22:00 06/29/20 22:21 Eskalith - PO 600 mg HS MEAGHAN Administration Methylphenidate HCl 20 mg 06/29/20 22:00 06/30/20 05:23 Ritalin - PO Not Given TID [facility] Home Medications Medication Instructions Recorded Hydroxychloroquine So4 [Plaquenil 200 mg PO BID tablet 09/01/15 -] Trazodone HCl 100 mg PO 2 TABS HS tablet 09/01/15 [place] Carbonate [Eskalith -] 600 mg PO HS 06/27/20 Methylphenidate HCl [Ritalin LA] 20 mg PO TID 06/27/20 Microbiology 06/28/20 10:30 Urine - Urine Clean Catch Urine Culture - Final Staphylococcus Coagulase Neg 06/28/20 09:49 Blood - Peripheral Venous Blood Culture - Preliminary NO GROWTH OBTAINED AFTER 24 HOURS, INCUBATION TO CONTINUE FOR 4 DAYS. 06/28/20 09:49 Blood - Peripheral Venous Blood Culture - Preliminary NO GROWTH OBTAINED AFTER 24 HOURS, INCUBATION TO CONTINUE FOR 4 DAYS. ASSESSMENT AND PLAN: This patient is a 59yof with PMhx of Bipolar, autoimmune disorder, hemorrhoids, and depression who came in to the ED for having bright red blood x 4 days with bowel movements painless. # Acute GIB due to Diverticulosis most likely , Colonoscopy in am , GI consulted and appreciated # Anemia: H/H monitor #Acute Leukocytosis monitor , no source of infection, follow cx #Bipolar Disorder continue Home [place] , f/u the level #MDD continue Trazadone will lower the dose since can prolong Qtc # Lichen Planus Follicularis: Hair Loss, will hold Plaquenil and trazodone , will check QTc prior to giving the patient the medication DVT px: SCds, npo after midnight for colonoscopy
--- NOTE | 2020-06-30 13:43 | PN ---
Physical Exam: SUBJECTIVE: Patient seen and examined, alert, in no acute distress. Reported bloody bowel movement last night while undergoing bowel prep for colonoscopy. OBJECTIVE: Vital Signs Period Temp Pulse Resp BP Sys/Hernandez Pulse Ox Last 24 Hr 97.8 F-99.0 F 60-76 18-20 100-130/44-65 0-99 GENERAL: The patient is awake, alert, and fully oriented, in no acute distress. HEAD: Normal with no signs of trauma. EYES: PERRL, extraocular movements intact, sclera anicteric, conjunctiva clear. No ptosis. ENT: Ears normal, nares patent, oropharynx clear without exudates, moist mucous membranes. NECK: Trachea midline, full range of motion, supple. LUNGS: Breath sounds equal, clear to auscultation bilaterally, no wheezes, no crackles, no accessory muscle use. HEART: Regular rate and rhythm, S1, S2 without murmur, rub or gallop. ABDOMEN: Soft, nontender, nondistended, normoactive bowel sounds EXTREMITIES: 2+ pulses, warm, well-perfused, no edema. NEUROLOGICAL: Normal speech, gait not observed. PSYCH: Normal mood, normal affect. SKIN: Warm, dry, normal turgor, no rashes or lesions noted Laboratory Results - last 24 hr CBC, BMP 06/30/20 05:32 06/30/20 05:32 Active Medications Generic Name Dose Route Start Last Admin Trade Name Freq PRN Reason Stop Dose Admin Acetaminophen 650 mg 06/28/20 16:38 Tylenol - PO Q6H PRN PAIN LEVEL 7 - 10 Atorvastatin Calcium 10 mg 06/29/20 22:00 06/29/20 22:21 Lipitor - PO 10 mg HS MEAGHAN Administration Hydroxychloroquine Sulfate 200 mg 06/29/20 10:00 06/29/20 22:22 Plaquenil - PO 200 mg BID MEAGHAN Administration Lactated Ringer's 1,000 ml in 1,000 mls @ 100 mls/hr 06/28/20 23:23 06/30/20 05:23 Lactated Ringers Solution IV 100 mls/hr ASDIR MEAGHAN Administration Pantoprazole Sodium 80 mg/ 100 mls @ 10 mls/hr 06/29/20 06:00 06/30/20 04:30 Sodium Chloride IVPB 07/01/20 09:59 10 mls/hr Q10H MEAGHAN Administration 8 MG/HR [place] Carbonate 600 mg 06/29/20 22:00 06/29/20 22:21 Eskalith - PO 600 mg HS MEAGHAN Administration Methylphenidate HCl 20 mg 06/29/20 22:00 06/30/20 05:23 Ritalin - PO Not Given TID MEAGHAN ASSESSMENT/PLAN: This is a 59 y.o. female with a history of Bipolar, autoimmune disorder, hemorrhoids, and depression who came in to the ED for BRBPR x4 days not associated with bowel movements. Pt has active lower GI bleed with right lower quadrant tenderness and leukocytosis. GI Bleeding likely 2/2 Diverticulosis -Active GI Bleeding, now resolved -Anemia -CT Abdomen/Pelvis: Diverticula in the left colon without diverticulitis -Protonix 80mg IV -LR @ 100mL/hr -Per GI: Colonoscopy done today Anemia -Per GI: Transfuse above 7.0 -If profuse bleeding, transfer to ICU Leukocytosis -VSS, no fever -UA Negative -UCx: Coag Neg Staph -FU Blood Cx Hypoglycemia: -Per GI: Regular Diet (low fat) -Monitor Blood Glucose Bipolar Disorder -Continue Home [place] -Monitor [place] Levels in 3 days MDD -Hold Trazadone 2/2 Long QT Lichen Planus Follicularis -Hair Loss -Continue Plaquenil FEN LR @ 100 Monitory Lytes Regular Diet (low fat) Dispo: Continue management on med floors ATTENDING PHYSICIAN STATEMENT I saw and evaluated the patient. I reviewed the resident's note and discussed the case with the resident. I agree with the resident's findings and plan as documented. SUBJECTIVE: OBJECTIVE: ASSESSMENT AND PLAN:
[2020-06-30 15:24] VITALS: TEMP 98.9
[2020-06-30 15:58] VITALS: BP 98/54; PULSE 61
--- NOTE | 2020-06-30 17:49 | DS ---
Physical Exam: SUBJECTIVE: Patient seen and examined this morning prior to Colonoscopy. Endorses 1 episode of BRBPR following [place] bowel prep. Denies any N/V/F/C, dizziness, LoC, CP or SoB. OBJECTIVE: Vital Signs Period Temp Pulse Resp BP Sys/Hernandez Pulse Ox Last 24 Hr 97.8 F-99.0 F 52-76 14-53 97-130/39-65 0-100 PHYSICAL EXAM GENERAL: The patient is awake, alert, and fully oriented, in no acute distress. HEAD: Normal with no signs of trauma. EYES: PERRL, extraocular movements intact, sclera anicteric, conjunctiva clear. ENT: Ears normal, nares patent, oropharynx clear without exudates, moist mucous membranes. NECK: Trachea midline, full range of motion, supple. LUNGS: Breath sounds equal, clear to auscultation bilaterally, no wheezes, no crackles, no accessory muscle use. HEART: Regular rate and rhythm, S1, S2 without murmur, rub or gallop. ABDOMEN: Soft, nontender, nondistended, normoactive bowel sounds, no guarding, no rebound, no hepatosplenomegaly, no masses. EXTREMITIES: 2+ pulses, warm, well-perfused, no edema. NEUROLOGICAL: Cranial nerves II through XII grossly intact. Normal speech, gait not observed. PSYCH: Normal mood, normal affect. SKIN: Warm, dry, normal turgor, no rashes or lesions noted. LABS Laboratory Results - last 24 hr 06/29/20 06/30/20 06/30/20 22:43 05:32 05:32 WBC 5.9 RBC 2.69 L Hgb 8.2 L Hct 24.4 L D MCV 90.5 MCH 30.4 MCHC 33.6 RDW 13.5 Plt Count 190 MPV 9.3 Absolute Neuts (auto) 2.6 Neutrophils % 43.6 Lymphocytes % 43.2 H Monocytes % 8.3 Eosinophils % 4.2 Basophils % 0.7 Nucleated RBC % 0 Sodium 143 Potassium 3.6 Chloride 112 H Carbon Dioxide 28 Anion Gap 4 L BUN 6.6 L Creatinine 0.8 Est GFR (CKD-EPI)AfAm 92.87 Est GFR (CKD-EPI)NonAf 80.13 POC Glucometer 92 Random Glucose 83 Calcium 7.7 L Total Bilirubin 0.5 AST 13 L ALT 13 Alkaline Phosphatase 40 L Total Protein 4.2 L Albumin 2.5 L 06/30/20 06/30/20 06/30/20 06:36 11:30 16:40 WBC RBC Hgb Hct MCV MCH MCHC RDW Plt Count MPV Absolute Neuts (auto) Neutrophils % Lymphocytes % Monocytes % Eosinophils % Basophils % Nucleated RBC % Sodium Potassium Chloride Carbon Dioxide Anion Gap BUN Creatinine Est GFR (CKD-EPI)AfAm Est GFR (CKD-EPI)NonAf POC Glucometer 83 90 81 Random Glucose Calcium Total Bilirubin AST ALT Alkaline Phosphatase Total Protein Albumin HOSPITAL COURSE: Date of Admission:06/27/20 Colonoscopy: No Active Bleeding. Grade 3 Hemorrhoids Sigmoid Polyp. L sided Diverticulum CT Abdomen Pelvis: Hepatic cyst Scattered diverticula of the left colon but no evidence of acute diverticulitis. No evidence of obstruction. CXR: No acute chest pathology EKG: SINUS TACHYCARDIA LEFT ANTERIOR FASCICULAR BLOCK INFERIOR INFARCT , AGE UNDETERMINED. Long QTc ~500ms Date of Discharge: 06/30/20 60 yo F w/ PMHx of Bipolar on [place], Lichen Planus Folliculitis on plaquenil, depression , and hemorrhoids presented to the ED c/o BRBPR x4 days. Pt stated she sat on the toilet and had extensive bright red blood while defecating. Stated she did not go earlier due to embarrassment. Pt stated she had some SOB, tremors, and weakness associated with the bleeding, but resolved at time of admission. Pt denies ever having a colonoscopy in the past or seeing a mandarin speaking nanny. Pt reported last BM was 2 days ago, and that she normally experiences some constipation In the ED, pt had another episode of bleeding while sitting on the toilet of 20mLs and reported further bleeding the next morning with clots. At the time, patient denied lightheadedness, dizziness, weakness, palpitations, abdominal pain, diarrhea, nausea, vomiting. GI PPx was started to mitigate bleeding. Ptn was admitted to the medical floors and monitored for hemodynamic stability, with goals to transfuse if Hgb dropped below 7.0. CT imaging and Colonoscopy are as above. Ptn's trazadone was held 2/2 long QTc. Ptn's bleeding stabilized, and was started on Senna and Sitz baths per GI. Outpatient followup with Cardiology to follow QTc, Psychiatry to monitor Trazadone effect on QTc and [place] levels, and GI to monitor diverticulosis and hepatic cyst. At time of DC, ptn was medically stable to go home with outpatient followup. Minutes to complete discharge: 36 Discharge Summary Problems reviewed: Yes Reason For Visit: rectal bleed Current Active Problems Autoimmune disorder (Chronic) Bipolar disorder (Chronic) Depression (Chronic) Condition: Stable - Instructions Diet, Activity, Other Instructions: Your visit: You were admitted to the hospital for rectal bleeding. You were found to have diverticulum or outpouching in your bowel. You were treated with medicine and to prevent bleeding with improvement of your symptoms. Additionally, you had a procedure called a colonoscopy which was able to visualize your colon and found no active bleeding Of note, during your stay the additional findings were documented: You were found to have hemorrhoids, a polyp, and a small outpouching in your colon called diverticulosis You were found to have a small cyst on your liver follow up as an outpatient Please continue to hold Trazodone since you were found to have prolonged QTc on EKG which is caused by Trazodone and other similar drugs , also Plaquenil can increase the QTc on the EKG, which is dangerous and can cause deadly arrhythmia. please follow up with your chief clinical officer or your primary for a repeat EKG prior starting your medication. Medications changes: -Please start using Sitz Baths to help alleviate any rectal pain. -Please start taking Senna twice a day to help with bowel movements. -Please hold taking Trazadone due to it's effect on your heart's rhythm until you can be reassessed by a Foreign Policy Officer -Continue to take all other home medications as prescribed. Follow up: - Please follow-up with Dr. Tanner Ruelas (Gastroenterology) in 1 week, to address your GI issues - Please follow-up with Dr. Skyla Lopez (Cardiology) in 1 week to address your cardiac issues - Please follow-up with Dr. Genie Marie (Psychiatry) to evaluate your [place] levels and your Trazadone dosage. - Please follow-up with Dr. Chino Bynum (Primary Care) in 2 weeks. Additional Instructions: -You are being discharged to your home. -Please return to the Emergency Department if you experience any further bloody bowel movements, worsening pain, fevers, chills, shortness of breath, chest pain, or if you experience any worsening, new or concerning symptoms. Referrals: Michelet Ruelas DO [Staff Physician] - 1 Week Chino Bynum MD [Primary Care Provider] - 2 Weeks Genie Rushnig MD [Non Staff, Medical] - 1 Week Skyla Lopez MD [Staff Physician] - 1 Week Disposition: HOME - Home Medications Comprehensive Discharge Medication List: Ambulatory Orders Hydroxychloroquine So4 [Plaquenil -] 200 mg PO BID tablet 09/01/15 Trazodone HCl 100 mg PO 2 TABS HS tablet 09/01/15 [place] Carbonate [Eskalith -] 600 mg PO HS 06/27/20 Methylphenidate HCl [Ritalin LA] 20 mg PO TID 06/27/20 Magnesium Sulfate [Epsom Salt] 454 gm PO PRN PRN 30 Days #30 granules 06/30/20 Sennosides [Senna] 8.6 mg PO BID 30 Days #60 capsule 06/30/20 This patient is new to me today: No Emergency Visit: No Critical Care patient: No - Discharge Referral Referred to [facility] No Physician Referral: Tanner Ruelas DO (GI) ATTENDING PHYSICIAN STATEMENT I saw and evaluated the patient. I reviewed the resident's note and discussed the case with the resident. I agree with the resident's findings and plan as documented. SUBJECTIVE: OBJECTIVE: ASSESSMENT AND PLAN:
[2020-06-30] MEDS ORDERED: SENNOSIDES 8.6MG TABLET (FP) PO SCH (22:00)
--- NOTE | 2020-07-02 13:43 | PATH ---
Surgical Pathology Report Patient Name: RADHA TURNER Med. Rec. #: [id number] /Age/Gender: 1960 (Age: 60) / F Account: [id number] Location: 4 W TELEMETRY U Taken: 06/30/2020 Received: 07/01/2020 Reported: 07/02/2020 Physicians: Apryl Leblanc M.D. Specimen(s) Received SIGMOID COLON POLYP Clinical History Rectal bleed Postoperative diagnosis: Sigmoid colon polyp, hemorrhoids Final Diagnosis SIGMOID COLON POLYP, POLYPECTOMY: TUBULAR ADENOMA. Electronically Signed Amina Delgado M.D. Gross Description Received in formalin, labeled "biopsy sigmoid colon polyp" is a grant, irregular portion of soft tissue measuring 0.3 cm. in greatest dimension. The specimen is submitted in toto in one cassette. /07/01/2020 [facility]07/01/2020
== END 2020-06-30 18:42 | disposition home or self-care (01) | DRG 378 ==
LOC: FER 20:59 → FM/S 21:59 → UNDOADMIN 22:31 → FM/S 22:31 → J4W 06-28 20:47
PROVIDERS: ADMIT Hospitalist; ATTEND Internal Medicine
PROC: 0DBN8ZX Excision of Sigmoid Colon, Via Natural or Artificial Opening Endoscopic, Diagnostic (ICD-10-PCS; principal; 2020-06-30 14:00)
DX: K57.91 Diverticulosis of intestine, part unspecified, without perforation or abscess with bleeding (principal); D62 Acute posthemorrhagic anemia; D72.829 Elevated white blood cell count, unspecified; F31.9 Bipolar disorder, unspecified; F32.9 Major depressive disorder, single episode, unspecified; D89.89 Other specified disorders involving the immune mechanism, not elsewhere classified; K63.5 Polyp of colon; K64.2 Third degree hemorrhoids; R00.0 Tachycardia, unspecified; L66.1 Lichen planopilaris
CPT/HCPCS: 36415; 71045-TC-FY; 74177-TC; 80048; 80053; 80061; 80178; 81003; 82550; 82962; 83036; 83721; 83735; 84443; 84484; 85025; 85027; 85610; 86850; 86900; 86901; 86922; 87040; 87086; 88305-TC; 93005; 99285-25; Q9967; U0003